=== PATIENT | male | born 1990 | race Native Hawaiian/Other Pacific Islander ===

== ENCOUNTER 2016-04-15 14:59 | Emergency (ER) | payer OTHER ==
[~2016-04-15] VITALS: Ht 180.3 cm; Wt 74.8 kg
[2016-04-15] MEDS ORDERED: ANUSOL-HC25 MG RE (15:41)
[2016-04-15] MEDS ORDERED: DOCU100C10 PO (15:41)
== END 2016-04-15 15:42 | disposition home or self-care (01) ==
LOC: ED 14:59
DX: K64.4 Residual hemorrhoidal skin tags (principal)
CPT/HCPCS: 82272; 99282

== ENCOUNTER → 2016-09-22 12:45 | Outpatient (CLI) | payer OTHER ==
[~2016-09-22 12:45] MED LIST: ANUSOL-HC25 MG RE; DOCU100C10 PO
== END | disposition home or self-care (01) ==
LOC: AMB 12:45
DX: Z04.3 Encounter for examination and observation following other accident (principal)

== ENCOUNTER 2018-05-23 13:45 | Emergency (ER) | payer OTHER ==
[~2018-05-23] VITALS: Ht 180.3 cm; Wt 72.6 kg
[2018-05-23 16:08] VITALS: BP 125/87; TEMP 97
== END 2018-05-23 16:08 | disposition home or self-care (01) ==
LOC: ED 13:45
DX: R00.2 Palpitations (principal); F41.9 Anxiety disorder, unspecified
CPT/HCPCS: 93005; 96372; 99282; J2060

== ENCOUNTER 2019-03-08 13:53 | Emergency (ER) | payer OTHER ==
[~2019-03-08] VITALS: Ht 180.3 cm; Wt 90.7 kg
[2019-03-08 13:59] VITALS: TEMP 99.7
[2019-03-08 14:38] VITALS: BP 124/88
== END 2019-03-08 14:39 | disposition home or self-care (01) ==
LOC: ED 13:53
DX: J02.9 Acute pharyngitis, unspecified (principal)
CPT/HCPCS: 87502; 87651; 99283

== ENCOUNTER 2019-09-01 13:50 | Emergency (ER) | payer OTHER ==
[~2019-09-01] VITALS: Ht 180.3 cm; Wt 90.7 kg
[2019-09-01 14:06] VITALS: TEMP 97.9
[2019-09-01 15:35] VITALS: BP 132/84
== END 2019-09-01 15:35 | disposition home or self-care (01) ==
LOC: ED 13:50
DX: S22.32XA Fracture of one rib, left side, initial encounter for closed fracture (principal); Y93.72 Activity, wrestling; Y92.89 Other specified places as the place of occurrence of the external cause
CPT/HCPCS: 96372; 99283; J1885

== ENCOUNTER 2022-03-07 15:11 | Emergency (ER) | payer OTHER ==
[~2022-03-07] VITALS: Ht 180.3 cm; Wt 90.7 kg
[2022-03-07 15:13] VITALS: BP 132/84; TEMP 98.5
== END 2022-03-07 17:10 | disposition home or self-care (01) ==
LOC: ED 15:11
PROC: 0H9EXZZ Drainage of Left Lower Arm Skin, External Approach (ICD-10-PCS; principal; 2022-03-07)
DX: L03.114 Cellulitis of left upper limb (principal); A49.02 Methicillin resistant Staphylococcus aureus infection, unspecified site
CPT/HCPCS: 87070; 87205; 99283

== ENCOUNTER 2022-03-12 21:30 | Emergency (ER) | payer OTHER ==
[~2022-03-12] VITALS: Ht 180.3 cm; Wt 81.6 kg
[2022-03-12 21:30] VITALS: TEMP 97.8
[2022-03-12 22:11] LABS: PLATELET COUNT 313 K/uL (142-355)
[2022-03-12 22:21] LABS: POTASSIUM 3.2 mmol/L (3.6-5.2); SODIUM 138 mmol/L (136-145)
[2022-03-12 22:31] LABS: PARTIAL THROMBOPLASTIN TIME 27.2 SECONDS (24.5-33.6)
[2022-03-12 23:55] VITALS: BP 100/60
== END 2022-03-12 22:35 | disposition home or self-care (01) ==
LOC: ED 21:30
PROVIDERS: Emergency Medicine
DX: R00.2 Palpitations (principal); R07.89 Other chest pain; F41.8 Other specified anxiety disorders; E87.6 Hypokalemia
CPT/HCPCS: 36415; 80053; 80307; 84484; 85027; 85379; 85610; 85730; 93005; 96374; 99284; J3490